=== PATIENT | male | born 2000 | race Caucasian/White ===

== ENCOUNTER 2022-05-24 11:36 | Emergency (ER) | payer BC ==
[2022-05-24] MEDS ORDERED: Benzocaine 20% Topical Spray UD MUCMEM ONE (12:41)
[2022-05-24] MEDS ORDERED: Lidocaine 2% Viscous Solution 15 ML UD PO ONE (12:41)
== END 2022-05-24 12:59 | disposition home or self-care (01) ==
LOC: MW.ED 11:36
DX: K04.7 Periapical abscess without sinus (principal)
CPT/HCPCS: 99282; A9270

== ENCOUNTER 2022-09-11 09:13 | Emergency (ER) | payer BC ==
[2022-09-11] MEDS ORDERED: Sodium Chloride 0.9% 1,000 ML IV SCH (10:30)
[2022-09-11 10:57] LABS: CARBON DIOXIDE,CO2 29.1 mmol/L (21.0-32.0)
[2022-09-11 11:03] LABS: POTASSIUM,K 4.6 mmol/L (3.5-5.1)
[2022-09-11] MEDS ORDERED: Iopamidol 755 MG/ML 500 ML Multipack Bottle IVPUSH STA (12:03)
== END 2022-09-11 12:37 | disposition home or self-care (01) ==
LOC: MW.ED 09:13
DX: R10.31 Right lower quadrant pain (principal); Z20.822 Contact with and (suspected) exposure to COVID-19
CPT/HCPCS: 36415; 74177; 80053; 85025; 87635; 96360; 99284; J7030; Q9967; U0002